=== PATIENT | male | born 2000 | race African-American/Black ===

== ENCOUNTER 2021-02-05 06:09 | Emergency (ER) | payer SELFPAY ==
[~2021-02-05] VITALS: Ht 170.2 cm; Wt 55.7 kg
[2021-02-05 06:29] VITALS: BP 135/67
[2021-02-05] MEDS ORDERED: KETOROLAC 60 MG/2 ML VIAL. IM ONE (06:45)
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
--- NOTE | 2021-02-05 07:53 | RAD ---
PQRS Compliance Statement: One or more of the following individualized dose reduction techniques were utilized for this examinat ion: 1. Automated exposure control 2. Adjustment of the mA and/or kV according to patient size 3. Use of iterative reconstruction technique Exam performed: CT scan lumbar spine. Indication: Fall, pain Date of Service: 02/05/2021. Comparison: None available. Technique: Contiguous helical acquisitions of the lumbar spine are obtained. Sagittal and coronal r eformatted images are obtained and reviewed. CT lumbar spine findings: There is minimal retrolisthesis of L5 over S1, the remainder sagittal alignment is preserved.. Five n onrib-bearing vertebral bodies are identified. The vertebral body heights and intervertebral disc spa wilma are maintained. There is no acute compression fracture. No prevertebral soft tissue swelling or m ass is detected. The aorta is normal. Impression: 1. No acute abnormality seen in the CT lumbar spine. Electronically signed by: Juliette Alvarado MD (02/05/2021 7:50 AM) [facility]
[2021-02-05] MEDS ORDERED: CYCL10TA2 PO (08:00)
[2021-02-05] MEDS ORDERED: IBUP-1060 PO (08:00)
== END 2021-02-05 08:46 | disposition home or self-care (01) ==
LOC: ER 06:09
DX: S39.92XA Unspecified injury of lower back, initial encounter (principal); G89.29 Other chronic pain; F17.200 Nicotine dependence, unspecified, uncomplicated; W17.81XA Fall down embankment (hill), initial encounter; Y93.K1 Activity, walking an animal; Y92.828 Other wilderness area as the place of occurrence of the external cause; Y99.8 Other external cause status
CPT/HCPCS: 72131; 96372; 99284; J1885